=== PATIENT | female | born 1945 | race Caucasian/White ===

== ENCOUNTER → 2021-01-10 | Outpatient (CLI) | payer MEDICARE ==
--- NOTE | 2021-01-12 11:26 | MM ---
Reason for exam: screening (asymptomatic). History: Patient is postmenopausal and history of other cancer. Took hormonal contraceptives for 5 years. Physical Findings: A clinical breast exam by your physician is recommended on an annual basis and results should be correlated with mammographic findings. MG 3D Screening Mammo W/Cad Bilateral CC and MLO view(s) were taken. No prior studies available for comparison. The breast tissue is heterogeneously dense. This may lower the sensitivity of mammography. There is no discrete abnormality. ASSESSMENT: Negative, BI-RAD 1 RECOMMENDATION: Routine screening mammogram of both breasts in 1 year.
== END | disposition home or self-care (01) ==
LOC: RADMAMWWP 07:06
PROVIDERS: ATTEND Family Medicine
DX: Z12.31 Encounter for screening mammogram for malignant neoplasm of breast (principal); Z85.9 Personal history of malignant neoplasm, unspecified; Z78.0 Asymptomatic menopausal state; Z79.3 Long term (current) use of hormonal contraceptives
CPT/HCPCS: 77063; 77067

== ENCOUNTER → 2022-02-09 | Outpatient (CLI) | payer MEDICARE ==
--- NOTE | 2022-02-09 15:30 | MM ---
Reason for Exam: Screening (asymptomatic). Last mammogram was performed 1 year(s) and 1 month(s) ago. Patient History: Menarche at age 12. First Full-Term at age 24. Left ovary removed at age 47. Right ovary removed at age 47. Hysterectomy at age 47. Postmenopausal. Other cancer. Patient used Hormonal Contraceptives for 5 years. Risk Values: Rosemary 5 year model risk: 1.6%. NCI Lifetime model risk: 3.2%. Prior Study Comparison: 06/02/2018 Bilateral MG screening mammo w CAD - 2, [place]. 06/22/2019 Bilateral MG screening mammo w CAD - 2, [place]. 01/10/2021 Bilateral Screening Mammogram, [facility]. Tissue Density: There are scattered fibroglandular densities. Findings: Analyzed By CAD. Some punctate calcifications are on the right medial lateral oblique view. There is a new, additional evaluation is recommended. There is some distortion on the right craniocaudal view upper portion on the tomographic images. Recommend compression views over this upper outer area. No suspicious groups of microcalcifications, spiculated or lobular masses, architectural distortion or other secondary signs of malignancy are mammographically apparent. Overall Assessment: Incomplete: need additional imaging evaluation, BI-RAD 0 Management: Diagnostic Mammogram of the right breast. A negative mammogram report should not preclude additional follow up of suspicious palpable abnormalities. Patient should continue monthly self breast exam. A clinical breast exam by your physician is recommended on an annual basis and results should be correlated with mammographic findings. Electronically signed and approved by: Lorne Damian D.O. Radiologis
== END | disposition home or self-care (01) ==
LOC: RADMAMWWP 07:10
PROVIDERS: ATTEND Family Medicine
DX: Z12.31 Encounter for screening mammogram for malignant neoplasm of breast (principal); Z78.0 Asymptomatic menopausal state; Z80.3 Family history of malignant neoplasm of breast
CPT/HCPCS: 77063; 77067

== ENCOUNTER → 2022-02-13 | Outpatient (CLI) | payer MEDICARE ==
--- NOTE | 2022-02-13 08:46 | MM ---
Reason for Exam: Additional evaluation requested from abnormal screening. Last screening mammogram was performed less than 1 month ago. Patient History: Menarche at age 12. First Full-Term at age 24. Left ovary removed at age 47. Right ovary removed at age 47. Hysterectomy at age 47. Postmenopausal. Other cancer. Patient used Hormonal Contraceptives for 5 years. Risk Values: Rosemary 5 year model risk: 1.6%. NCI Lifetime model risk: 3.2%. Prior Study Comparison: 06/02/2018 Bilateral MG screening mammo w CAD - 2, [place]. 06/22/2019 Bilateral MG screening mammo w CAD - 2, [place]. 01/10/2021 Bilateral Screening Mammogram, [facility]. 02/09/2022 Bilateral MG 3D screening mammo w/cad, [facility]. Tissue Density: Right: The breast tissue is heterogeneously dense. This may lower the sensitivity of mammography. Findings: Analyzed By CAD. The distortion on the right craniocaudal view and upper portion of the prior mammogram relates to superimposed breast tissue on compression. The punctate calcifications seen on the right mediolateral oblique view demonstrate group distribution with rounded appearance magnification view. Overall Assessment: Benign, BI-RAD 2 Management: Screening Mammogram of both breasts in 1 year. A clinical breast exam by your physician is recommended on an annual basis and results should be correlated with mammographic findings. This exam should not preclude additional follow-up of suspicious palpable abnormalities. Results were given to the patient verbally at the time of exam. Electronically signed and approved by: Pasha Monteiro D.O.
== END | disposition home or self-care (01) ==
LOC: RADMAMWWP 08:13
PROVIDERS: ATTEND Family Medicine
DX: R92.8 Other abnormal and inconclusive findings on diagnostic imaging of breast (principal); Z78.0 Asymptomatic menopausal state; Z85.89 Personal history of malignant neoplasm of other organs and systems
CPT/HCPCS: 77065; G0279; 77061

== ENCOUNTER → 2023-04-02 | Outpatient (CLI) | payer MEDICARE ==
--- NOTE | 2023-04-03 19:10 | MM ---
Reason for Exam: Screening (asymptomatic). Last mammogram was performed 1 year(s) and 2 month(s) ago. Patient History: Menarche at age 12. First Full-Term at age 24. Left ovary removed at age 47. Right ovary removed at age 47. Hysterectomy at age 47. Postmenopausal. Other cancer. Patient used Hormonal Contraceptives for 5 years. Risk Values: Rosemary 5 year model risk: 1.6%. NCI Lifetime model risk: 3.0%. Prior Study Comparison: 01/10/2021 Bilateral Screening Mammogram, [facility]. 02/09/2022 Bilateral MG 3D screening mammo w/cad, [facility]. 02/13/2022 Right MG 3D work up w/cad RT, [facility]. Tissue Density: There are scattered fibroglandular densities. Findings: Analyzed By CAD. Unchanged left upper outer quadrant global asymmetry. There is no suspicious group of microcalcifications or new suspicious mass in either breast. Overall Assessment: Benign, BI-RAD 2 Management: Screening Mammogram of both breasts in 1 year. . Patient should continue monthly self-breast exams. A clinical breast exam by your physician is recommended on an annual basis. This exam should not preclude additional follow-up of suspicious palpable abnormalities. Note on Rosemary scores and lifetime risk: 1. A Rosemary score greater than 3% is considered moderate risk. If this is the case, consider specialist referral to assess eligibility for a risk reducing agent. 2. If overall lifetime risk for the development of breast cancer is 20% or higher, the patient may qualify for future screening with alternating mammogram and breast MRI. Electronically signed and approved by: Randall Bangura M.D. Radiologist
== END | disposition home or self-care (01) ==
LOC: RADMAMWWP 07:30
PROVIDERS: ATTEND Family Medicine
DX: Z12.31 Encounter for screening mammogram for malignant neoplasm of breast (principal); Z78.0 Asymptomatic menopausal state
CPT/HCPCS: 77063; 77067